=== PATIENT | female | born 1985 | race Caucasian/White ===

== ENCOUNTER 2025-04-23 16:11 | Emergency (ER) | payer OTHER ==
[~2025-04-23] VITALS: Ht 175.3 cm; Wt 99.3 kg
[2025-04-23 16:20] VITALS: BP 119/75; TEMP 98.1
[2025-04-23] MEDS ORDERED: DOXY100C2 PO (16:43)
[2025-04-23] MEDS ORDERED: TDAP [DIPH/PERTUSSIS/TET] 0.5 ML VIAL IM ONE (16:49)
[2025-04-23] MEDS: TDAP [DIPH/PERTUSSIS/TET] 0.5 ML VIAL IM ONE (16:53)
[2025-04-23 16:54] VITALS: O2SAT 98
== END 2025-04-23 16:54 | disposition home or self-care (01) ==
LOC: ER 16:22
DX: S51.812A Laceration without foreign body of left forearm, initial encounter (principal); Z88.0 Allergy status to penicillin; W54.0XXA Bitten by dog, initial encounter; Y93.89 Activity, other specified; Y92.89 Other specified places as the place of occurrence of the external cause; Y99.9 Unspecified external cause status
CPT/HCPCS: 99283; 90471; 90715; A6403